=== PATIENT | female | born 1960 | race Caucasian/White ===

== ENCOUNTER 2021-10-12 09:07 | Emergency (ER) | payer OTHER ==
[2021-10-12 09:32] VITALS: BP 116/71; PULSE 72; TEMP 98.1; BMI 21.9
[2021-10-12] MEDS ORDERED: KETOROLAC TROMETHAMINE 30 MG/1 ML VIAL IM ONE (10:58)
[2021-10-12] MEDS ORDERED: KETOROLAC TROMETHAMINE 30 MG/1 ML VIAL ONE (11:42)
== END 2021-10-12 14:07 | disposition home or self-care (01) ==
LOC: JER 09:07 → JERFT 09:07
PROC: 3E0233Z Introduction of Anti-inflammatory into Muscle, Percutaneous Approach (ICD-10-PCS; principal; 2021-10-12)
DX: M79.10 Myalgia, unspecified site (principal); V79.50XA Passenger on bus injured in collision with unspecified motor vehicles in traffic accident, initial encounter
CPT/HCPCS: 72040-TC; 72100-TC-FY; 99284-25